=== PATIENT | male | born 1975 | race Hispanic/Latino ===

== ENCOUNTER 2018-04-16 11:21 | Emergency (ER) | payer SELFPAY ==
--- NOTE | 2018-04-16 13:21 | ER ---
Nurse's Notes [facility] Name: Danny Smith Jr Age: 42 yrs Sex: Male : 1975 Arrival Date: 04/16/2018 Time: 11:23 Bed [facility]ing [facility]: Presentation: 04/16 11:47 Presenting complaint: Patient states: I have had pain and weakness in my entire body sg after vomiting x1 last night, denies Fever/Diarrhea, reports having a sensation of food in his upper stomach and throat, thought it was acid reflux but denies having a GI hx. Transition of care: patient was not received from another setting of care. Onset of symptoms was April 16, 2018. Risk Assessment: Do you want to hurt yourself or someone else? Patient reports no desire to harm self or others. Initial Sepsis Screen: Does the patient meet any 2 criteria? No. Patient's initial sepsis screen is negative. Does the patient have a suspected source of infection? No. Patient's initial sepsis screen is negative. Care prior to arrival: None. 11:47 Method Of Arrival: Ambulatory sg 11:47 Acuity: PIEDAD 3 sg Historical: - Allergies: 11:49 No Known Allergies; sg - Home Meds: 11:49 None [Active]; sg - PMHx: 11:49 None; sg - PSHx: 11:49 None; sg - Immunization history:: Adult Immunizations not up to date. - Social history:: Smoking status: Patient/guardian denies using tobacco. - Ebola Screening: : Patient negative for fever greater than or equal to 101.5 degrees Fahrenheit, and additional compatible Ebola Virus Disease symptoms Patient denies exposure to infectious person Patient denies travel to an Ebola-affected area in the 21 days before illness onset No symptoms or risks identified at this time. Assessment: 13:00 Reassessment: called to exam room. No answer. ss 13:20 Reassessment: called patient. Pt reports that he left for reasons unknown. Does not ss seem upset. Vital Signs: 11:49 BP 129 / 95; Pulse 65; Resp 16; Temp 97.9(TE); Pulse Ox 98% on R/A; Weight 76.2 kg; sg Pain 6/10; ED Course: 11:23 Patient arrived in ED. [facility] sb2 11:47 Arm band placed on. sg 11:49 Triage completed. sg Administered Medications: No medications were administered Outcome: 13:20 Eloped from waiting room. ss 13:21 Patient left the ED. ss Signatures: El Guerrero RN RN sg Flower Clemons RN RN ss Jimena Marcano sb2 Corrections: (The following items were deleted from the chart) 11:50 11:47 Acuity: PIEDAD 4 sg sg
== END 2018-04-16 13:21 | disposition left against medical advice (07) ==
LOC: ER 11:21
DX: Z53.21 Procedure and treatment not carried out due to patient leaving prior to being seen by health care provider (principal)
CPT/HCPCS: 99281